=== PATIENT | male | born 1950 | race Caucasian/White ===

== ENCOUNTER → 2016-09-06 | Day surgery (SDC) | payer MEDICARE, BC ==
[~2016-09-06] MED LIST: Lactated Ringers 1,000 ML IV SCH; Midazolam 1 MG/ML 2 ML SDV ONE; Propofol 200 MG/20 ML SDV ONE; fentaNYL 100 MCG/2 ML SDV ONE
--- NOTE | 2016-09-07 08:57 | OR ---
DATE OF PROCEDURE: 09/06/2016 PREOPERATIVE DIAGNOSIS: History of adenomatous polyps. POSTOPERATIVE DIAGNOSES: Diverticulosis. Small colon polyp, 40 cm from the anal verge. History of adenomatous colon polyp. PROCEDURE PERFORMED: Colonoscopy to the cecum with biopsy resection of small polyp 40 cm from the anal verge. ANESTHESIA: IV anesthesia with monitored anesthesia care. INDICATION: This 66-year-old white male is referred for a colonoscopy because of a history of adenomatous colon polyps. His last colonoscopic exam he says was done 3 years ago. I counseled him for the procedure including risks and alternatives and he gave his informed consent to proceed. DESCRIPTION OF PROCEDURE: The patient was placed in the left lateral decubitus position. IV anesthesia was administered by the Anesthesia Service. Time-out was held. A rectal exam was performed, which was unremarkable. The flexible video Olympus colonoscope was introduced through his anus, up his rectum, and out his colon all way to the cecum. Once the cecum was reached, the scope was slowly withdrawn examining the mucosa throughout. In the left and sigmoid colon areas, we saw a few scattered diverticula. There was no bleeding or inflammation associated with any of them. At 40 cm from the anal verge, we saw a small polyp which was removed with the biopsy forceps. The scope was brought back into the rectum, where it was retroflexed. There was some minor hemorrhoidal tissue present, otherwise unremarkable. The scope was straightened and removed. He tolerated the procedure well. Flynn Del Rio MD /[id number]
[2016-09-07 14:50] VITALS: BP 140/85
== END ==
LOC: JP.SDS 10:28
PROVIDERS: ATTEND Surgery
DX: Z12.11 Encounter for screening for malignant neoplasm of colon (principal); K63.5 Polyp of colon; K57.30 Diverticulosis of large intestine without perforation or abscess without bleeding; I10 Essential (primary) hypertension; E11.9 Type 2 diabetes mellitus without complications; J44.9 Chronic obstructive pulmonary disease, unspecified; Z88.8 Allergy status to other drugs, medicaments and biological substances
CPT/HCPCS: 45380; J2250; J2704; J3010; J7120; 88305